=== PATIENT | female | born 1955 | race Caucasian/White ===

== ENCOUNTER 2017-11-24 06:30 | Inpatient (IN) | payer BC ==
[2017-11-24] MEDS: SODIUM CHLORIDE 0.9% 500 ML BAG IV* (06:59)
[2017-11-24] MEDS: VECURONIUM 100 MG in DEXTROSE 5% 100 ML IV (06:59)
[2017-11-24 07:00] LABS: ADD MAN DIFF? NO
[2017-11-24] MEDS ORDERED: FENTAnyl (DRIP) 1000 mcg/100mL 100 ML IV ×2 (07:00→07:30)
[2017-11-24] MEDS ORDERED: ETOMIDATE 20 MG INJ (07:00)
[2017-11-24] MEDS ORDERED: EPINEPHrine 0.1 MG/ML SYG (07:00)
[2017-11-24] MEDS ORDERED: NA BICARBONATE 8.4% 50 ML SYG ×2 (07:00→10:40)
[2017-11-24] MEDS ORDERED: ROCURONIUM 50 MG INJ (07:00)
[2017-11-24 07:08] LABS: WHITE BLOOD COUNT 20.6 10^3/ul (4.8-10.8)
[2017-11-24 07:08] LABS: ABNORMAL IP MESSAGE 1; BASOPHILS % 0.1 % (0.0-2.0); HEMATOCRIT 41.9 % (37.0-47.0); HEMOGLOBIN 13.7 g/dl (12.0-16.0); LYMPHOCYTES # 2.2 10^3/ul (0.8-2.9); LYMPHOCYTES % 10.6 % (15.0-51.0); MEAN CORPUSCULAR HEMOGLOBIN 29.4 pg (29.0-33.0); MEAN CORPUSCULAR HGB CONC 32.7 g/dl (32.0-37.0); MEAN CORPUSCULAR VOLUME 89.9 fl (82.0-101.0); MEAN PLATELET VOLUME 11.6 fl (7.4-10.4); MONOCYTE # 1.5 10^3/ul (0.3-0.9); MONOCYTES % 7.5 % (0.0-11.0); NEUTROPHIL # 15.9 10^3/ul (1.6-7.5); NEUTROPHILS % 77.4 % (39.0-77.0); NUCLEATED RED BLOOD CELLS # 0.1 10^3/ul (0.0-0.0); NUCLEATED RED BLOOD CELLS% 0.2 /100WBC (0.0-0.0); PLATELET COUNT 218 10^3/UL (140-415); RED BLOOD COUNT 4.66 10^6/ul (4.20-5.40); RED CELL DISTRIBUTION WIDTH 15.5 % (11.5-14.5)
[2017-11-24 07:12] LABS: INR 1.75; PARTIAL THROMBOPLASTIN TIME 33.5 Sec (25.0-35.0); PROTIME 20.8 Sec (11.9-14.9); PT RATIO 1.6
[2017-11-24 07:17] LABS: ALANINE AMINOTRANSFERASE 41 IU/L (13-69); ALBUMIN 4.1 g/dl (3.3-4.9); ALBUMIN/GLOBULIN RATIO 1.51; ALKALINE PHOSPHATASE 76 IU/L (42-121); ANION GAP 31 (8-16); ASPARTATE AMINO TRANSFERASE 68 IU/L (15-46); BILIRUBIN,INDIRECT 0.7 mg/dl (0-1.1); BILIRUBIN,TOTAL 0.7 mg/dl (0.2-1.3); BLOOD UREA NITROGEN 55 mg/dl (7-20); CARBON DIOXIDE 20 mmol/L (21-31); CHLORIDE 101 mmol/L (97-110); CREATININE 1.42 mg/dl (0.44-1.00); GLUCOSE 285 mg/dl (70-220); LIPASE 377 U/L (23-300); POTASSIUM 4.3 mmol/L (3.5-5.1); SODIUM 148 mmol/L (135-144); TOTAL PROTEIN 6.8 g/dl (6.1-8.1)
[2017-11-24 07:20] LABS: POSITIVE DIFF @See below
[2017-11-24 07:24] LABS: LACTIC ACID 11.7 mmol/L (0.5-2.0)
[2017-11-24] MEDS: CEFEPIME 2GM/50 ML (PMX) 50 ML IVPB (07:40)
[2017-11-24] MEDS: ROCURONIUM 50 MG INJ IV (07:41)
[2017-11-24] MEDS: ETOMIDATE 20 MG INJ IV (07:41)
[2017-11-24] MEDS: SODIUM CHLORIDE 0.9% 1L BAG IV* (07:42)
[2017-11-24] MEDS: MIDAZOLAM (DRIP) 50 mg/50 mL 50 ML IV (07:43)
[2017-11-24] MEDS ORDERED: DOPamine-D5W 1.6 MG/ML 250 ML (07:50)
[2017-11-24 08:00] LABS: AADO2 Arterial 526.7 mmHg (7.0-24.0); Allen Test ACCEPTAB; Arterial Base Excess -12.2 mmol/L (-3.0-3); Arterial Blood Gas Oxygen Sat 97.6 mmHG (95.0-98.0); Arterial COHb 0.3 % (0.0-3.0); Arterial Fraction of Oxyhgb 96.8 % (93.0-99.0); Arterial HCO3 17.2 mmol/L (22.0-26.0); Arterial MetHb 0.5 % (0.0-1.5); Arterial Total Hemglobin 13.9 g/dl (12.0-18.0); Arterial pCO2 53.3 mmhg (35-45); MODE VENT - AC; Site Left Radial
[2017-11-24 08:09] LABS: PHOSPHORUS 7.2 mg/dl (2.5-4.9)
[2017-11-24 08:09] LABS: MAGNESIUM 2.6 mg/dl (1.7-2.5)
[2017-11-24] MEDS: CLINDAMYCIN 900 MG/D5W (PMX) 50 ML IVPB (08:23)
[2017-11-24] MEDS: IODIXANOL LOCM 100 ML BTL (08:55)
[2017-11-24 09:19] LABS: ADD UMIC YES; UR ASCORBIC ACID NEGATIVE (NEGATIVE); UR BILIRUBIN (Dip) NEGATIVE (NEGATIVE); UR BLOOD (Dip) NEGATIVE (NEGATIVE); UR CLARITY CLEAR (CLEAR); UR COLOR YELLOW (YELLOW); UR GLUCOSE (Dip) NEGATIVE (NEGATIVE); UR KETONES (Dip) NEGATIVE (NEGATIVE); UR LEUKOCYTE ESTERASE (Dip) TRACE Leu/ul (NEGATIVE); UR MUCUS MODERATE /HPF (NONE SEEN); UR NITRITE (Dip) NEGATIVE (NEGATIVE); UR RBC 3 /HPF (0-5); UR SPECIFIC GRAVITY (Dip) 1.041 (1.003-1.030); UR TOTAL PROTEIN (Dip) 1+ mg/dl (NEGATIVE); UR UROBILINOGEN (Dip) 1+ mg/dL (NEGATIVE); UR WBC 9 /HPF (0-5)
[2017-11-24] MEDS: VANCOMYCIN 1 GM (PMX) 250 ML IVPB (09:21)
[2017-11-24] MEDS: VASOPRESSIN 60 UNIT in SOD CHLORIDE 0.9% 57 ML IV (09:21)
[2017-11-24] MEDS: HYDROCORTISONE 100 MG INJ IV (10:10)
[2017-11-24 10:12] LABS: Allen Test ACCEPTAB; Arterial Base Excess -13.9 mmol/L (-3.0-3); Arterial COHb 0.3 % (0.0-3.0); Arterial Fraction of Oxyhgb 97.2 % (93.0-99.0); Arterial HCO3 15.6 mmol/L (22.0-26.0); Arterial MetHb 0.5 % (0.0-1.5); Arterial Total Hemglobin 12.7 g/dl (12.0-18.0); MODE VENT - AC; Site Left Radial
[2017-11-24 10:31] LABS: LACTIC ACID 6.7 mmol/L (0.5-2.0)
[2017-11-24] MEDS: DOPamine-D5W 1.6 MG/ML 250 ML IV ×3 (10:47→17:09)
[2017-11-24] MEDS: NORepinephrine 8MG/250 ML (PMX 250 ML IV ×2 (10:48→17:02)
[2017-11-24] MEDS: SOD CHLORIDE 0.9% 1,000 ML IV ×3 (10:49→15:17)
[2017-11-24 10:58] LABS: PLATELET COUNT 124 10^3/UL (140-415)
[2017-11-24] MEDS: EPINEPHrine 4 MG in DEXTROSE 5% 246 ML IV (11:11)
[2017-11-24 11:25] LABS: INR 2.46; PROTIME 27.3 Sec (11.9-14.9); PT RATIO 2.1
[2017-11-24 11:26] LABS: PARTIAL THROMBOPLASTIN TIME 40.2 Sec (25.0-35.0)
[2017-11-24 11:27] LABS: THROMBIN TIME 20.4 SEC (13.8-19.1)
[2017-11-24] MEDS ORDERED: SOD CHLORIDE 0.45% 1,000 ML IV (11:52)
[2017-11-24] MEDS: ACCU-CHEK XX ×7 (12:00→18:00)
[2017-11-24] MEDS ORDERED: ONDANSETRON 4 MG INJ IV (12:00)
[2017-11-24] MEDS ORDERED: DEXTROSE 50% 50 ML SYRINGE IV ×2 (12:00)
[2017-11-24] MEDS ORDERED: HEPARIN 1000 UNITS/ML 10 ML INJ IV ×2 (12:00)
[2017-11-24 12:12] LABS: FIBRIN SPLIT PRODUCT <10 ug/ml (<10)
[2017-11-24] MEDS ORDERED: VANCOMYCIN IV PER PHARMACY XX (12:30)
[2017-11-24 12:33] LABS: D-DIMER > 10000.00 ng/ml (<460)
[2017-11-24 13:00] LABS: WHITE BLOOD COUNT 35.3 10^3/ul (4.8-10.8)
[2017-11-24 13:00] LABS: ABNORMAL IP MESSAGE 1; HEMATOCRIT 37.7 % (37.0-47.0); HEMOGLOBIN 12.2 g/dl (12.0-16.0); MEAN CORPUSCULAR HGB CONC 32.4 g/dl (32.0-37.0); MEAN CORPUSCULAR VOLUME 92.9 fl (82.0-101.0); MEAN PLATELET VOLUME 11.6 fl (7.4-10.4); RED BLOOD COUNT 4.06 10^6/ul (4.20-5.40); RED CELL DISTRIBUTION WIDTH 15.1 % (11.5-14.5)
[2017-11-24 13:06] LABS: POSITIVE DIFF @See below
[2017-11-24 13:08] LABS: ADD MAN DIFF? YES
[2017-11-24 13:19] LABS: CREATINE KINASE 301 IU/L (23-200)
[2017-11-24 13:19] LABS: LACTIC ACID 6.5 mmol/L (0.5-2.0)
[2017-11-24 13:21] LABS: AADO2 Arterial 451.4 mmHg (7.0-24.0); Allen Test ACCEPTAB; Arterial Base Excess -12.8 mmol/L (-3.0-3); Arterial Blood Gas Oxygen Sat 98.8 mmHG (95.0-98.0); Arterial COHb 0.3 % (0.0-3.0); Arterial Fraction of Oxyhgb 98.2 % (93.0-99.0); Arterial HCO3 16.4 mmol/L (22.0-26.0); Arterial MetHb 0.3 % (0.0-1.5); Arterial Total Hemglobin 13.8 g/dl (12.0-18.0); Arterial pCO2 50.9 mmhg (35-45); MODE VENT - AC; Site Right Radial
[2017-11-24 13:23] LABS: INR 3.35; PT RATIO 2.7
[2017-11-24 13:24] LABS: PARTIAL THROMBOPLASTIN TIME 46.4 Sec (25.0-35.0)
[2017-11-24 13:29] LABS: CK INDEX 3.5
[2017-11-24] MEDS ORDERED: EPINEPHrine 4 MG in DEXTROSE 5% 246 ML IV (13:30)
[2017-11-24 13:42] LABS: B-TYPE NATRIURETIC PEPTIDE 12500 PG/ML (0-125)
[2017-11-24] MEDS: INSULIN HUMAN REGULAR 100 UNIT in SOD CHLORIDE 0.9% 99 ML IV (13:43)
[2017-11-24 14:38] LABS: ANISOCYTOSIS 3+ (0-0); BAND NEUTROPHILS #M 4.2 10^3/ul (0.0-0.6); BAND NEUTROPHILS % (M) 12 % (0-4); GIANT THROMBO% (M) 1 % (0-0); LYMPHOCYTES #M 0.7 10^3/ul (0.8-2.9); LYMPHOCYTES % (M) 2 % (15-51); METAMYELOCYTES %M 3 % (0-0); MICROCYTOSIS 3+ (0-0); MONOCYTE #M 1.7 10^3/ul (0.3-0.9); MONOCYTES % (M) 5 % (0-11); PLATELET MORPHOLOGY COMMENT @See below; POIKILOCYTOSIS 3+ (0-0); SEG NEUT #M 29.7 10^3/ul (1.6-7.5); SEGMENTED NEUTROPHILS (M) % 80 % (39-77); SMUDGE%M 2 % (0-0)
[2017-11-24 14:40] LABS: PLATELET COUNT 92 10^3/UL (140-415)
[2017-11-24] MEDS: SODIUM BICARBONATE (IV ADD) 100 MEQ in DEXTROSE 5%-0.45% NACL 900 ML IV (14:59)
[2017-11-24] MEDS: ATORVASTATIN 40 MG TAB PO (15:00)
[2017-11-24] MEDS: VASOPRESSIN 60 UNIT in DEXTROSE 5% 57 ML IV (15:11)
[2017-11-24 15:49] LABS: AMPHETAMINE/METHAMPHETAMINE Negative (NEGATIVE); BENZODIAZEPINES Negative (NEGATIVE)
[2017-11-24] MEDS: HEPARIN 25000 UNITS/250 ML 250 ML IV (15:49)
[2017-11-24 15:54] LABS: BARBITURATES Negative (NEGATIVE); CANNABINOIDS Negative (NEGATIVE); COCAINE Negative (NEGATIVE); OPIATES Negative (NEGATIVE)
[2017-11-24] MEDS: PANTOPRAZOLE 40 MG INJ IV (18:04)
[2017-11-24] MEDS: VANCOMYCIN 1 GM 250 ML IVPB (18:04)
[2017-11-24] MEDS ORDERED: morphine 2 MG INJ (18:18)
[2017-11-24] MEDS: morphine 2 MG INJ IV (19:32)
[2017-11-25] MEDS ORDERED: CEFEPIME 1GM/50 ML (PMX) 50 ML IVPB (08:00)
[2017-11-25] MEDS ORDERED: VANCOMYCIN 1 GM 250 ML IVPB (18:00)
== END 2017-11-24 18:48 | disposition expired | DRG 871 ==
LOC: E/R 06:30 → ICU 08:43
PROC: 0BH17EZ Insertion of Endotracheal Airway into Trachea, Via Natural or Artificial Opening (ICD-10-PCS; principal; 2017-11-24)
PROC: 5A1935Z Respiratory Ventilation, Less than 24 Consecutive Hours (ICD-10-PCS; 2017-11-24)
DX: A41.9 Sepsis, unspecified organism (principal); R65.21 Severe sepsis with septic shock; I21.4 Non-ST elevation (NSTEMI) myocardial infarction; D65 Disseminated intravascular coagulation [defibrination syndrome]; I26.99 Other pulmonary embolism without acute cor pulmonale; J96.00 Acute respiratory failure, unspecified whether with hypoxia or hypercapnia; G93.40 Encephalopathy, unspecified; J69.0 Pneumonitis due to inhalation of food and vomit; N17.9 Acute kidney failure, unspecified
CPT/HCPCS: 31500; 36415; 36600; 70450; 71045; 71275; 76937; 80053; 80307; 81001; 82550; 82553; 82803; 82962; 83605; 83690; 83735; 83880; 84100; 84484; 85025; 85049; 85362; 85378; 85384; 85610; 85670; 85730; 86850; 86900; 86901; 87040; 87081; 87086; 92950; 93005; 93306; 93970; 94002; 96374; 96375; 99291-25